=== PATIENT | female | born 1980 | race Caucasian/White ===

== ENCOUNTER 2019-04-28 10:25 | Emergency (ER) | payer OTHER ==
[~2019-04-28] VITALS: Ht 170.1 cm; Wt 88.0 kg
--- NOTE | ~2019-04-28 | EKG ---
[place], [place] ELECTROCARDIOGRAM REPORT NAME: ALAINA PETERSEN UNIT #: [id number] ROOM: DOCTOR: EPIPHANY DRAFT REPORT BIRTHDATE: [birth year] [facility] Test Date: 2019-04-28 Test Time: 10:53:44 Pat Name: ALAINA PETERSEN Department: Room: Gender: F Nut Former: : 1980 Requested By: NELIA GREWAL DNP Order Number: [id number] Reading MD: Willian Floyd MD Measurements Intervals [place] Rate: 97 P: 61 AL: 118 QRS: 16 QRSD: 102 T: 36 QT: 353 QTc: 449 Interpretive Statements Sinus rhythm Borderline short AL interval Electronically Signed On 05-09-2019 7:33:04 PDT by Willian Floyd MD CM:EKGRPT:ELECTROCARDIOGRAM REPORT [id number] NELIA GREWAL DNP EPIPHANY DRAFT REPORT NELIA GREWAL DNP
[~2019-04-28 10:25] MED LIST: ATIVAN2 M1 PO; VISTARIL25 M2 PO
[2019-04-28 10:54] LABS: BASO # 0.1 10*3/uL (0.0-0.1); BASO % 0.8 % (0.0-1.0); EOS # 0.2 10*3/uL (0.0-0.4); EOS % 2.9 % (1.0-4.0); HEMATOCRIT 46.8 % (37.0-47.0); HEMOGLOBIN 15.4 g/dl (12.0-16.0); LYMPH # 2.9 10*3/uL (1.3-4.4); LYMPH % 37.7 % (27.0-41.0); MEAN CELL VOLUME 89.7 fl (81.0-99.0); MEAN CORPUSCULAR HGB 29.5 pg (27.0-31.0); MEAN CORPUSCULAR HGB CONC 32.9 g/dl (33.0-37.0); MEAN PLATELET VOLUME 9.6 fl (9.6-12.3); MONO # 0.6 10*3/uL (0.1-1.0); MONO % 8.1 % (3.0-9.0); NEUT # 3.9 10*3/uL (2.3-7.9); NEUT % 50.4 % (47.0-73.0); PLATELET COUNT AUTOMATED 355 10*3/uL (130-400); RED BLOOD COUNT 5.22 10*6/uL (4.10-5.10); WHITE BLOOD COUNT 7.7 10*3/uL (4.8-10.8)
[2019-04-28 11:00] LABS: BILIRUBIN NEGATIVE (NEGATIVE); BLOOD 1+ (NEGATIVE); CLARITY CLEAR (CLEAR); COLOR YELLOW (YELLOW); GLUCOSE NEGATIVE (NEGATIVE); KETONE NEGATIVE (NEGATIVE); LEUKO ESTERASE NEGATIVE (NEGATIVE); NITRITE NEGATIVE (NEGATIVE); UROBILINOGEN 0.2 E.U./dl (0.2-1.0)
[2019-04-28 11:05] LABS: ACT PARTIAL THROMBO TIME 25.4 SECONDS (20.0-32.1); INTERNATIONAL NORM RATIO 0.9 (2.0-3.5)
[2019-04-28 11:10] LABS: ALBUMIN 3.9 gm/dl (3.1-4.5); ALKALINE PHOSPHATASE 86 U/L (45-117); BUN 10 mg/dl (7-24); CHLORIDE 106 mmol/L (98-107); LIPASE 160 U/L (73-393); POTASSIUM 3.8 mmol/L (3.5-5.1); SGOT/AST 20 IU/L (3-35); SGPT/ALT 28 U/L (12-78); SODIUM 138 mmol/L (136-145); TOTAL PROTEIN 8.4 gm/dL (6.4-8.2)
[2019-04-28 11:13] LABS: TROPONIN I < 0.015 ng/ml (<0.045)
[2019-04-28 11:14] LABS: BACTERIA 1+; WBC 0-2 wbc/hpf (0-5)
== END 2019-04-28 14:20 | disposition home or self-care (01) ==
LOC: ED 10:25
PROVIDERS: Nurse Practitioner Family
DX: R00.0 Tachycardia, unspecified (principal); R03.0 Elevated blood-pressure reading, without diagnosis of hypertension; R07.89 Other chest pain; R06.02 Shortness of breath; F41.9 Anxiety disorder, unspecified; Z91.040 Latex allergy status